=== PATIENT | male | born 1935 | race Caucasian/White ===

== ENCOUNTER 2021-11-13 15:41 | Emergency (ER) | payer MEDICARE ==
[2021-11-13] MEDS ORDERED: Loratadine 10 MG TAB PO SCH (17:30)
== END 2021-11-13 17:48 | disposition home or self-care (01) ==
LOC: CSHERS 15:41
DX: S60.561A Insect bite (nonvenomous) of right hand, initial encounter (principal); W57.XXXA Bitten or stung by nonvenomous insect and other nonvenomous arthropods, initial encounter; I48.91 Unspecified atrial fibrillation; Z79.899 Other long term (current) drug therapy; Z79.01 Long term (current) use of anticoagulants
CPT/HCPCS: 99283

== ENCOUNTER 2021-12-06 13:13 | Emergency (ER) | payer MEDICARE ==
[2021-12-06 13:43] LABS: Bilirubin Neg (Negative); Blood, Urine 50 (Negative); Clarity Cloudy (Clear); Glucose, Urine (Dipstick) Normal (Negative); Ketone, Urine Negative (Negative); Leukocyte 500 (Negative); Nitrite Positive (Negative); Protein, Urine (Dipstick) 100 mg/dl (Neg-Trace); Specific Gravity, Urine 1.015 (1.002-1.036); Urobilinogen Normal mg/dL (Less than 2); pH, Urine 6.5 (5.0-9.0)
[2021-12-06 14:02] LABS: Bacteria/HPF 4+ HPF (None Seen); RBC/HPF 0-3 HPF (0-3); Squamous Epithelial 0-3 HPF (0-3); WBC/HPF 21-50 HPF (0-3)
== END 2021-12-06 16:00 | disposition home or self-care (01) ==
LOC: CSHERS 13:13
DX: N39.0 Urinary tract infection, site not specified (principal); I48.91 Unspecified atrial fibrillation; Z79.899 Other long term (current) drug therapy
CPT/HCPCS: 81003; 81015; 87086; 99283